=== PATIENT | female | born 1980 | race Caucasian/White ===

== ENCOUNTER 2020-09-15 13:09 | Emergency (ER) | payer OTHER ==
[~2020-09-15] VITALS: Ht 162.6 cm; Wt 61.2 kg
[2020-09-15 13:09] VITALS: BP_SYST 135
[2020-09-15 14:07] VITALS: BP_SYST 128
== END 2020-09-15 14:07 | disposition home or self-care (01) ==
LOC: SED 13:09
DX: S60.021A Contusion of right index finger without damage to nail, initial encounter (principal); W22.8XXA Striking against or struck by other objects, initial encounter; Y93.89 Activity, other specified; Y92.89 Other specified places as the place of occurrence of the external cause; Y99.8 Other external cause status
CPT/HCPCS: 99281